=== PATIENT | female | born 2000 | race Caucasian/White ===

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

== ENCOUNTER 2019-01-19 22:34 | Emergency (ER) | payer OTHER ==
[~2019-01-19] VITALS: Ht 170.2 cm; Wt 85.5 kg
[2019-01-19 22:34] VITALS: BP 133/86
--- NOTE | 2019-01-19 23:26 | PHYS DOC ---
Past History Past Medical History: Asthma, Other Past Surgical History: Tonsillectomy Smoking: Non-smoker Alcohol Use: None Drug Use: None Adult General Chief Complaint Chief Complaint: ANKLE PROBLEM HPI HPI 18-year-old female presents with right ankle pain. The patient was chasing a cow when she her ankle. She states her foot medially and she had immediate lateral pain. It is very painful to walk on it. She has pain over both malleoli. She denies any other injuries. It is swollen compared to the left Review of Systems Review of Systems Constitutional: Denies fever or chills [] Eyes: Denies change in visual acuity, redness, or eye pain [] HENT: Denies nasal congestion or sore throat [] Respiratory: Denies cough or shortness of breath [] Cardiovascular: No additional information not addressed in HPI [] GI: Denies abdominal pain, nausea, vomiting, bloody stools or diarrhea [] : Denies dysuria or hematuria [] Musculoskeletal: Right ankle pain[] Integument: Denies rash or skin lesions [] Neurologic: Denies headache, focal weakness or sensory changes [] Endocrine: Denies polyuria or polydipsia [] All other systems were reviewed and found to be within normal limits, except as documented in this note. Allergies Allergies Allergies Coded Allergies Type Severity Reaction Last Updated Verified amoxicillin Allergy Unknown 10/07/18 Yes cefaclor Allergy Unknown 10/07/18 Yes clavulanic acid Allergy Unknown 10/07/18 Yes Physical Exam Physical Exam Constitutional: Well developed, well nourished, no acute distress, non-toxic appearance. [] HENT: Normocephalic, atraumatic, bilateral external ears normal, oropharynx moist, no oral exudates, nose normal. [] Eyes: PERRLA, EOMI, conjunctiva normal, no discharge. [] Neck: Normal range of motion, no tenderness, supple, no stridor. [] Cardiovascular:Heart rate regular rhythm, no murmur [] Lungs & Thorax: Bilateral breath sounds clear to auscultation [] Abdomen: Bowel sounds normal, soft, no tenderness, no masses, no pulsatile masses. [] Skin: Warm, dry, no erythema, no rash. [] Back: No tenderness, no CVA tenderness. [] Extremities: Bilateral right malleoli tenderness, swelling of the right lateral ankle, no ecchymosis or obvious deformity.[] Neurologic: Alert and oriented X 3, normal motor function, normal sensory function, no focal deficits noted. [] Psychologic: Affect normal, judgement normal, mood normal. [] Radiology/Procedures Radiology/Procedures [] Impressions: Preliminary interpretation right ankle: No acute fracture or dislocation is seen. Course & Med Decision Making Course & Med Decision Making Pertinent Labs and Imaging studies reviewed. (See chart for details) The patient's x-rays are negative for fracture. She has a sprained ankle. We will place her in an air splint. She is stable for discharge at this time. [] Dragon Disclaimer Dragon Disclaimer This electronic medical record was generated, in whole or in part, using a voice recognition dictation system. Departure Departure: Impression: Primary Impression: Moderate right ankle sprain Disposition: 01 HOME, SELF-CARE Condition: STABLE Referrals: MARC HINSON (PCP) Patient Instructions: Ankle Sprain, Acute, with Phase I Rehab-SportsMed Problem Qualifiers Primary Impression: Moderate right ankle sprain Encounter type: initial encounter Qualified Codes: S93.401A - Sprain of unspecified ligament of right ankle, initial encounter JOELLEN PAIGE DO Jan 19, 2019 23:26
--- NOTE | 2019-01-20 00:30 | RAD ---
Right ankle 3 views. HISTORY: Right ankle injury, pain and swelling 3 views were taken of the right ankle. There is not evidence of an acute fracture or osseous abnormality. IMPRESSION: 1. Negative right ankle. Electronically signed by: Nilton Hill MD (01/20/2019 12:27 AM) [facility]
== END 2019-01-20 | disposition home or self-care (01) ==
LOC: ER 22:34
DX: S93.401A Sprain of unspecified ligament of right ankle, initial encounter (principal); J45.909 Unspecified asthma, uncomplicated; Z88.1 Allergy status to other antibiotic agents; X58.XXXA Exposure to other specified factors, initial encounter; Y93.02 Activity, running; Y92.89 Other specified places as the place of occurrence of the external cause; Y99.8 Other external cause status
CPT/HCPCS: 73610; 99284

== ENCOUNTER → 2020-02-16 | Outpatient (CLI) | payer OTHER | LOC: LAB 12:58 | PROVIDERS: ATTEND Internal Medicine Cardiovascular Disease | DX: J45.909 Unspecified asthma, uncomplicated (principal); Z20.828 Contact with and (suspected) exposure to other viral communicable diseases | CPT/HCPCS: 36415; U0003 ==

== ENCOUNTER → 2020-02-22 | Outpatient (CLI) | payer OTHER | END | disposition home or self-care (01) | LOC: LAB 13:25 | PROVIDERS: ATTEND Internal Medicine Cardiovascular Disease | DX: Z20.828 Contact with and (suspected) exposure to other viral communicable diseases (principal) | CPT/HCPCS: C9803; U0003; 36415 ==

== ENCOUNTER 2021-01-13 06:28 | Emergency (ER) | payer OTHER ==
[~2021-01-13] VITALS: Ht 170.2 cm; Wt 85.5 kg
[2021-01-13 06:30] VITALS: BP 122/82
--- NOTE | 2021-01-13 06:52 | PHYS DOC ---
Past History Past Medical History: Asthma, Other Past Surgical History: Tonsillectomy, Other Smoking: Non-smoker Alcohol Use: None Drug Use: None Adult General Chief Complaint Chief Complaint: HAND PROBLEM HPI HPI Patient is a 20-year-old female presenting for right hand pain. Reports getting out of shower and falling on a closed fist onto right hand. Reports immediate pain over third and fourth digit knuckles. Hot showers and icing have helped, she has not taken anything yet for pain. No radiation of pain. No changes in motor, sensory or neuro function. Here due to worsening bruising and swelling, she has concern for fracture Review of Systems Review of Systems Fourteen body systems of review of systems have been reviewed. See HPI for pertinent positives and negative responses, other lucero all other systems are negative, non-pertinent or non-contributory Allergies Allergies Allergies Coded Allergies Type Severity Reaction Last Updated Verified amoxicillin Allergy Unknown 10/07/18 Yes cefaclor Allergy Unknown 10/07/18 Yes clavulanic acid Allergy Unknown 10/07/18 Yes Physical Exam Physical Exam Constitutional: Well developed, well nourished, no acute distress, non-toxic appearance. HENT: Normocephalic, atraumatic, bilateral external ears normal, oropharynx moist, no oral exudates, nose normal. Eyes: PERRLA, EOMI, conjunctiva normal, no discharge. Neck: Normal range of motion, no tenderness, supple, no stridor. Cardiovascular: Heart rate regular per monitor Lungs & Thorax: No respiratory distress or accessory muscle use, bilateral chest rise Abdomen: Abdomen soft, non-tender, bowel sounds present in all quadrants, no guarding or rebound, nonacute abdomen. Skin: Warm, dry, no erythema, no rash. Back: No tenderness, no CVA tenderness. Extremities: Pain over third and fourth MCP of right hand, 5/5 muscle strength of right upper extremity, no pain over anatomical snuffbox, no cyanosis, no clubbing, ROM intact, no edema. Neurologic: Alert and oriented X 3, medial, radial and ulnar nerves intact, normal motor & sensory function, no focal deficits noted. Psychologic: Affect normal, judgement normal, mood normal. Current Patient Data Vital Signs Vital Signs Date Time Temp Pulse Resp B/P (MAP) Pulse Ox O2 Delivery O2 Flow Rate FiO2 01/13/21 06:30 98.2 80 16 122/82 (95) 100 Room Air Vital Signs Date Time Temp Pulse Resp B/P (MAP) Pulse Ox O2 Delivery O2 Flow Rate FiO2 01/13/21 06:30 98.2 80 16 122/82 (95) 100 Room Air EKG EKG [] Radiology/Procedures Radiology/Procedures XR HAND_RIGHT 3 VIEWS DATE: 01/13/2021 6:52 AM INDICATION: injury COMPARISON: None. FINDINGS: Bones: There is no evidence of acute fracture or dislocation. Joints: The joint spaces are normal. Miscellaneous: None. IMPRESSION: No evidence of acute fracture. Electronically signed by: Unruly Carreon MD (01/13/2021 7:02 AM) [id number] Heart Score Risk Factors: Risk Factors: DM, Current or recent (<one month) smoker, HTN, HLP, family history of CAD, obesity. Risk Scores: Risk Factors: DM, Current or recent (<one month) smoker, HTN, HLP, family history of CAD, obesity. Course & Med Decision Making Course & Med Decision Making Pertinent Labs and Imaging studies reviewed. (See chart for details) [] Dragon Disclaimer Dragon Disclaimer This electronic medical record was generated, in whole or in part, using a voice recognition dictation system. Departure Departure: Impression: Primary Impression: Contusion of right hand Disposition: 01 HOME / SELF CARE / HOMELESS Condition: STABLE Referrals: MARC HINSON (PCP) Patient Instructions: Contusion, Hand Injuries Additional Instructions: It is likely that you have experienced a contusion within the joint that is causing you pain. The best treatment for this injury is continued range of motion to prevent a frozen joint. A Rest, Ice, Compression, Elevation (RICE) strategy may also be helpful in the acute phase. Tylenol and/or NSAID drugs may be used for pain control as needed. It is advise you contact your primary care physician first thing tomorrow to review your ER visit today and determine need for close outpatient follow-up for repeat evaluation. There might be a role for physical therapy/Occupational Therapy or sports medicine follow-up if your symptoms do not improve. It was a pleasure to take care of you and I wish you the best going forward TOBY LEAL DO Jan 13, 2021 06:52
--- NOTE | 2021-01-13 07:05 | RAD ---
XR HAND_RIGHT 3 VIEWS DATE: 01/13/2021 6:52 AM INDICATION: injury COMPARISON: None. FINDINGS: Bones: There is no evidence of acute fracture or dislocation. Joints: The joint spaces are normal. Miscellaneous: None. IMPRESSION: No evidence of acute fracture. Electronically signed by: Unruly Carreon MD (01/13/2021 7:02 AM) [id number]
== END 2021-01-13 07:33 | disposition home or self-care (01) ==
LOC: ER 06:28
DX: S60.221A Contusion of right hand, initial encounter (principal); J45.901 Unspecified asthma with (acute) exacerbation; Z88.1 Allergy status to other antibiotic agents; Z88.8 Allergy status to other drugs, medicaments and biological substances; W18.39XA Other fall on same level, initial encounter; Y93.E1 Activity, personal bathing and showering; Y92.098 Other place in other non-institutional residence as the place of occurrence of the external cause; Y99.8 Other external cause status
CPT/HCPCS: 73130; 99283

== ENCOUNTER → 2021-05-23 | Outpatient (CLI) | payer OTHER ==
[2021-05-24 20:07] LABS: ANA INTERP Negative (.)
== END ==
LOC: LAB 13:26
PROVIDERS: ATTEND Family Medicine
DX: D68.69 Other thrombophilia (principal); K22.2 Esophageal obstruction
CPT/HCPCS: 85610; 85730; 86038

== ENCOUNTER → 2021-08-09 | Outpatient (CLI) | payer OTHER | LOC: LAB 10:34 | PROVIDERS: ATTEND Internal Medicine Cardiovascular Disease | DX: U07.1 COVID-19 (principal); J02.9 Acute pharyngitis, unspecified; R09.81 Nasal congestion | CPT/HCPCS: U0003 ==